=== PATIENT | male | born 1980 | race Caucasian/White ===

== ENCOUNTER → 2020-07-24 08:42 | Outpatient (CLI) | payer BC ==
[2020-03-24 10:18] VITALS: BMI 34.2
[~2020-07-24 08:42] MED LIST: ABILIFY2 MG PO; AZITHROMYCIN500 MG PO; DECADRON4 MG PO; INDERAL LA60 MG; KLONOPIN0.5 MG PO; MELATONIN 3 MG1 TAB PO; OMNICEF300 MG PO; VITAMIN C PO; VITAMIN D325 MC1 PO; ZINC-220220 MG PO; ZPAK PO
== END | disposition home or self-care (01) ==
LOC: D.RT 08:00
PROVIDERS: ATTEND Internal Medicine Pulmonary Disease
DX: R06.09 Other forms of dyspnea (principal)